=== PATIENT | female | born 1980 | race African-American/Black ===

== ENCOUNTER 2018-12-27 17:10 | Emergency (ER) | payer OTHER ==
[~2018-12-27] VITALS: Ht 162.6 cm; Wt 59.0 kg
[~2018-12-27 17:10] MED LIST: IBUPROFEN 600600 M1 PO; VENTOLIN HFA 1818 GM INH; ZOFRAN ODT4 MG PO; ZPAK PO
[2018-12-27 18:34] LABS: HEMATOCRIT 34.7 % (37.0-47.0); HEMOGLOBIN 11.6 gm/dL (12.0-15.0); MCH 33.6 pg (26.0-34.0); MCHC 33.5 g/dL (28.0-37.0); MCV 100.5 fL (80.0-100.0); RBC 3.45 mil/uL (4.20-5.00); RDW 13.1 % (10.5-14.5); WBC 3.6 thou/uL (4.0-11.0)
[2018-12-27] MEDS ORDERED: TESSALON PERLE100 MG PO (19:02)
[2018-12-27] MEDS ORDERED: NAPROSYN500 MG PO (19:02)
[2018-12-27] MEDS ORDERED: VENTOLIN HFA 1818 GM INH (19:02)
[2018-12-27 19:32] VITALS: BP 106/75
== END 2018-12-27 19:18 | disposition home or self-care (01) ==
LOC: ER 17:10
PROVIDERS: Physician Assistant
DX: R09.1 Pleurisy (principal); D64.9 Anemia, unspecified

== ENCOUNTER 2019-06-20 16:32 | Emergency (ER) | payer OTHER ==
[~2019-06-20] VITALS: Ht 162.6 cm; Wt 59.0 kg
[~2019-06-20 16:32] MED LIST changes: +NAPROSYN500 MG PO; +TESSALON PERLE100 MG PO
[2019-06-20 17:14] LABS: BASOPHILS 0.7 % (0.0-2.0); EOSINOPHILS 4.1 % (0.0-3.0); HEMATOCRIT 36.3 % (37.0-47.0); HEMOGLOBIN 12.2 gm/dL (12.0-15.0); LYMPHOCYTES 48.2 % (24.0-44.0); MCH 33.5 pg (26.0-34.0); MCHC 33.5 g/dL (28.0-37.0); MCV 99.9 fL (80.0-100.0); MONOCYTES 8.6 % (1.0-8.0); PLATELET COUNT 163 thou/uL (150-400); POLYS 38.4 % (36.0-66.0); RBC 3.64 mil/uL (4.20-5.00); RDW 13.7 % (10.5-14.5); WBC 5.2 thou/uL (4.0-11.0)
[2019-06-20 17:22] LABS: ANION GAP 8 mmol/L (7-16); BUN 13 mg/dL (7-18); CALCIUM 8.7 mg/dL (8.5-10.1); CHLORIDE 101 mmol/L (98-107); CO2 26 mmol/L (21-32); CREATININE 0.9 mg/dL (0.6-1.0); GLUCOSE 84 mg/dL (74-106); POTASSIUM 3.8 mmol/L (3.5-5.1); SODIUM 135 mmol/L (136-145)
[2019-06-20 17:32] LABS: ALBUMIN 3.9 g/dL (3.4-5.0); SGOT 13 U/L (15-37); SGPT 5 U/L (30-65); TOTAL BILIRUBIN 0.2 mg/dL (<0.1-1.0); TOTAL PROTEIN 7.3 g/dL (6.4-8.2); TROPONIN-I <0.06 ng/mL (<0.06)
[2019-06-20 18:44] VITALS: BP 110/70
--- NOTE | 2019-06-21 15:43 | EKG ---
[address] [place] [address] ELECTROCARDIOGRAM REPORT Name: MICHAEL ALEXANDER Room #: DEP [facility]#: [id number] Admission: 06/20/19 Attend Phys: Discharge: 06/20/19 Date of : 82 Report #: [id number] THIS REPORT FOR: //name// [facility] ED Test Date: 2019-06-20 Test Time: 16:38:30 Pat Name: MICHAEL ALEXANDER Department: Room: Gender: F Post Secondary Professional: ENOC : 1980 Requested By: Caio Boykin Order Number: [id number] MD: Jorgito Perez Measurements Intervals [place] Rate: 63 P: 67 SC: 124 QRS: 86 QRSD: 90 T: 55 QT: 405 QTc: 415 Interpretive Statements Sinus rhythm Normal tracing Compared to ECG 04/09/2015 01:55:45 No significant changes Electronically Signed On 06-21-2019 15:43:06 [employer] INTERN by Jorgito Perez [email or web address] <ELECTRONICALLY SIGNED> By: Jorgito Perez MD, [facility] 06/21/19 1543 1638 1638 Jorgito Perez MD, FACC /EPI
== END 2019-06-20 19:08 | disposition home or self-care (01) ==
LOC: ER 16:32
PROVIDERS: Emergency Medicine
DX: R07.89 Other chest pain (principal); R42 Dizziness and giddiness; F17.210 Nicotine dependence, cigarettes, uncomplicated

== ENCOUNTER 2019-10-28 21:14 | Emergency (ER) | payer OTHER ==
[~2019-10-28] VITALS: Ht 162.6 cm; Wt 58.1 kg
[2019-10-28 22:11] LABS: URINE BILIRUBIN NEGATIVE (Negative); URINE BLOOD NEGATIVE (Negative); URINE CLARITY CLEAR; URINE COLOR YELLOW; URINE GLUCOSE-RANDOM* NEGATIVE (Negative); URINE KETONES NEGATIVE (Negative); URINE LEUKOCYTES-REFLEX NEGATIVE (Negative); URINE PROTEIN (DIPSTICK) NEGATIVE (Negative); URINE UROBILINOGEN 0.2 E.U./dl (0.2-1.0)
[2019-10-28 22:13] LABS: URINE NITRITE-REFLEX POSITIVE (Negative)
[2019-10-28 22:17] LABS: BACTERIA-REFLEX >30 Many /HPF (None Seen); SQUAMOUS 4-10 Moderate /LPF (0-3)
[2019-10-28 22:18] LABS: CASTS None Seen /LPF (None Seen); CRYSTALS None Seen /LPF (None Seen); URINE RBC None Seen /HPF (0-2); URINE WBC-REFLEX None Seen /HPF (0-5)
[2019-10-28] MEDS ORDERED: VENTOLIN HFA 1818 GM INH (23:08)
[2019-10-28] MEDS ORDERED: ONDANSETRON ODT4 MG PO (23:08)
[2019-10-28] MEDS ORDERED: PEPCID20 MG PO (23:08)
[2019-10-29 00:02] VITALS: BP 110/76
--- NOTE | 2019-11-08 12:16 | EKG ---
[facility] [place] [address] ELECTROCARDIOGRAM REPORT Name: MICHAEL ALEXANDER Room #: DEP [facility]#: [id number] Admission: 10/28/19 Attend Phys: Discharge: 10/29/19 Date of : 82 Report #: [id number] THIS REPORT FOR: cc: LICHA - No family physician/PCP FAM - No family physician/PCP Jorgito Perez MD [facility] THIS REPORT FOR: //name// [facility] ED Test Date: 2019-10-28 Test Time: 22:15:49 Pat Name: MICHAEL ALEXANDER Department: Room: Gender: F Therapeutic Support Staff: CORRINA : 1980 Requested By: Jose White Order Number: [id number] MD: Jorgito Perez Measurements Intervals [place] Rate: 53 P: 17 VA: 118 QRS: 84 QRSD: 91 T: 59 QT: 427 QTc: 401 Interpretive Statements Sinus bradycardia Borderline short VA interval Compared to ECG 06/20/2019 16:38:30 No significant changes Electronically Signed On 10-29-2019 9:10:04 CDT by Jorgito Perez [email or web address] <ELECTRONICALLY SIGNED> By: Jorgito Perez MD, FAC 10/29/19 0910 2215 2215 Jorgito Perez MD, [facility] /EPI
== END 2019-10-29 00:03 | disposition home or self-care (01) ==
LOC: ER 21:14
PROVIDERS: Emergency Medicine
DX: M54.2 Cervicalgia (principal); R35.0 Frequency of micturition; R06.02 Shortness of breath; R51 Headache; F17.210 Nicotine dependence, cigarettes, uncomplicated; Z20.828 Contact with and (suspected) exposure to other viral communicable diseases

== ENCOUNTER 2021-01-04 09:49 | Emergency (ER) | payer OTHER ==
[~2021-01-04] VITALS: Ht 162.6 cm; Wt 56.7 kg
[~2021-01-04 09:49] MED LIST changes: +ONDANSETRON ODT4 MG PO; +PEPCID20 MG PO
[2021-01-04 11:01] LABS: ABSOLUTE NEUTROPHILS 3.1 thou/uL (1.4-8.2); BASOPHILS 0.5 % (0.0-2.0); EOSINOPHILS 2.9 % (0.0-3.0); HEMATOCRIT 34.2 % (37.0-47.0); HEMOGLOBIN 11.7 gm/dL (12.0-15.0); LYMPHOCYTES 30.9 % (24.0-44.0); MCH 34.2 pg (26.0-34.0); MCHC 34.1 g/dL (28.0-37.0); MCV 100.2 fL (80.0-100.0); MONOCYTES 7.6 % (1.0-8.0); PLATELET COUNT 184 thou/uL (150-400); POLYS 58.1 % (36.0-66.0); RBC 3.41 mil/uL (4.20-5.00); RDW 13.8 % (10.5-14.5); WBC 5.3 thou/uL (4.0-11.0)
[2021-01-04 11:04] LABS: ANION GAP 9 mmol/L (7-16); BUN 11 mg/dL (7-18); CALCIUM 8.5 mg/dL (8.5-10.1); CHLORIDE 104 mmol/L (98-107); CO2 24 mmol/L (21-32); GLUCOSE 86 mg/dL (74-106); SODIUM 137 mmol/L (136-145)
[2021-01-04 11:05] LABS: POTASSIUM 4.1 mmol/L (3.5-5.1)
[2021-01-04 11:13] LABS: TROPONIN-I <0.06 ng/mL (<0.06)
[2021-01-04 12:12] VITALS: BP 105/74
--- NOTE | 2021-01-04 12:48 | EKG ---
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
== END 2021-01-04 12:12 | disposition home or self-care (01) ==
LOC: ER 09:49
PROVIDERS: Student in an Organized Health Care Education/Training Program
DX: R07.89 Other chest pain (principal); R06.02 Shortness of breath; F17.210 Nicotine dependence, cigarettes, uncomplicated; E11.9 Type 2 diabetes mellitus without complications

== ENCOUNTER 2021-09-12 09:26 | Emergency (ER) | payer OTHER ==
[~2021-09-12] VITALS: Ht 162.6 cm; Wt 56.7 kg
[2021-09-12] MEDS ORDERED: NAPROSYN500 MG PO (10:55)
[2021-09-12 11:02] VITALS: BP 86/63
== END 2021-09-12 11:02 | disposition home or self-care (01) ==
LOC: ER 09:26
DX: S49.91XA Unspecified injury of right shoulder and upper arm, initial encounter (principal); S80.01XA Contusion of right knee, initial encounter; S20.211A Contusion of right front wall of thorax, initial encounter; F17.210 Nicotine dependence, cigarettes, uncomplicated; W18.30XA Fall on same level, unspecified, initial encounter; Y93.89 Activity, other specified; Y92.89 Other specified places as the place of occurrence of the external cause; Y99.8 Other external cause status